=== PATIENT | male | born 1950 | race Caucasian/White ===

== ENCOUNTER → 2020-06-05 | Outpatient (CLI) | payer OTHER ==
[~2020-06-05] MED LIST: LOSA100T14 PO
[2020-06-05 10:51] LABS: BASOPHILS # (AUTO) 0.04 x10^3/uL (0-0.1); BASOPHILS % (AUTO) 1 % (0-1); EOSINOPHILS # (AUTO) 0.16 x10^3/uL (0-0.4); EOSINOPHILS % (AUTO) 2 % (1-7); LYMPHOCYTES # (AUTO) 0.58 x10^3/uL (1-3.4); LYMPHOCYTES % (AUTO) 8 % (22-44); MD NO; MEAN CORPUSCULAR HEMOGLOBIN 33.1 pg (27.5-34.5); MEAN CORPUSCULAR HGB CONC 33.4 g/dL (33.2-36.2); MEAN CORPUSCULAR VOLUME 99.3 fL (81-97); MEAN PLATELET VOLUME 7.8 fL (7.4-10.4); MONOCYTES # (AUTO) 0.83 x10^3/uL (0.2-0.8); MONOCYTES % (AUTO) 12 % (2-9); NEUTROPHILS % (AUTO) 77 % (42-75); PLATELET COUNT 327 x10^3/uL (130-400); RED BLOOD COUNT 4.35 x10^6/uL (4.38-5.82); RED CELL DISTRIBUTION WIDTH 16.4 % (9.4-14.8)
[2020-06-05 11:02] LABS: INTERNATIONAL NORMALIZED RATIO 0.97 (0.93-1.1)
[2020-06-05 11:03] LABS: ALBUMIN 3.2 g/dL (3.4-5.0); ANION GAP 8 mmol/L (5-15); CHLORIDE 100 mmol/L (98-107)
[2020-06-05 11:07] LABS: ALANINE AMINOTRANSFERASE 22 U/L (12-78); ALKALINE PHOSPHATASE 53 U/L (45-117); BILIRUBIN,TOTAL 0.6 mg/dL (0.2-1.0); CREATININE 0.74 mg/dL (0.7-1.3); TOTAL PROTEIN 7.1 g/dL (6.4-8.2)
== END | disposition home or self-care (01) ==
LOC: STAR 09:28
PROVIDERS: ATTEND Orthopaedic Surgery
DX: Z01.818 Encounter for other preprocedural examination (principal); Z11.59 Encounter for screening for other viral diseases; I45.10 Unspecified right bundle-branch block; I44.4 Left anterior fascicular block; M17.11 Unilateral primary osteoarthritis, right knee; M25.561 Pain in right knee
CPT/HCPCS: 36415; 80053; 83036; 85025; 85610; 85730; 87081; 87635; 93005

== ENCOUNTER 2020-06-10 07:00 | Inpatient (IN) | payer OTHER ==
[~2020-06-10] VITALS: Ht 175.3 cm; Wt 113.4 kg
[~2020-06-10 07:00] MED LIST changes: +EPINEPHRINE 1 MG/ML, 1ML ONE; +KETOROLAC 60 MG/2 ML ONE; +ROPIvacaine/PF 0.5%, 20 ML ONE; +ROPIvacaine/PF 0.5%, 30 ML ONE; +SODIUM CHLORIDE 0.9% 0 ML ONE; +TRANEXAMIC ACID 100 MG/ML, 10ML ONE; +VANCOMYCIN 1,000 MG ONE
[2020-06-10] MEDS ORDERED: NS + 20MEQ KCL 1,000 ML IV SCH (09:35)
[2020-06-10] MEDS ORDERED: LACTATED RINGERS 1,000 ML IV SCH (09:48)
[2020-06-10] MEDS ORDERED: TOFA5TAB PO (09:51)
[2020-06-10 09:55] VITALS: BP 144/84
[2020-06-10] MEDS ORDERED: GABAPENTIN 300 MG CAPSULE ONE (09:58)
[2020-06-10] MEDS ORDERED: CHLORHEXIDINE 15 ML UDC ONE (09:59)
[2020-06-10] MEDS ORDERED: SENNA/DOCUSATE TABLET PO PRN (10:00)
[2020-06-10] MEDS ORDERED: CHLORHEXIDINE 15 ML UDC MM ONE (10:00)
[2020-06-10] MEDS ORDERED: BISACODYL 10 MG SUPP PR PRN (10:00)
[2020-06-10] MEDS ORDERED: ONDANSETRON 4 MG TABLET PO PRN (10:00)
[2020-06-10] MEDS ORDERED: DIPHENHYDRAMINE 25 MG CAPSULE PO PRN (10:00)
[2020-06-10] MEDS ORDERED: CEFAZOLIN PMX 2GM/50ML 50 ML IVPB SCH (10:00)
[2020-06-10] MEDS ORDERED: OXYcodone IR 5MG TABLET PO PRN (10:00)
[2020-06-10] MEDS ORDERED: ACETAMINOPHEN 650 MG/20.3 ML UDC PO PRN (10:00)
[2020-06-10] MEDS ORDERED: MAGNESIUM HYDROXIDE 8%, 30ML UDC PO PRN (10:00)
[2020-06-10] MEDS ORDERED: ONDANSETRON 2MG/ML, 2ML IV PRN (10:00)
[2020-06-10] MEDS ORDERED: HYDROcodone/APAP 5/325 TABLET PO PRN (10:00)
[2020-06-10] MEDS ORDERED: ZOLPIDEM 5MG TABLET PO PRN (10:00)
[2020-06-10] MEDS ORDERED: HYDROmorphone 1 MG/ML, 1ML INJ IV PRN (10:00)
[2020-06-10] MEDS ORDERED: ACETAMINOPHEN 500 MG TABLET PO ONE (10:00)
[2020-06-10] MEDS ORDERED: MIDAZOLAM 1 MG/ML, 2ML ONE (10:21)
[2020-06-10] MEDS ORDERED: FENTANYL PF 250 MCG/5ML ONE (10:21)
[2020-06-10] MEDS ORDERED: GABAPENTIN 300 MG CAPSULE PO ONE (11:00)
[2020-06-10] MEDS ORDERED: ASPIRIN 81 MG TABLET EC PO SCH (18:00)
[2020-06-10] MEDS ORDERED: DOCUSATE 100 MG CAPSULE PO SCH (21:00)
[2020-06-11] MEDS ORDERED: DEXAMETHASONE 4 MG/ML, 1ML IVPush SCH (06:00)
[2020-06-11] MEDS ORDERED: LOSARTAN 100 MG TAB PO SCH (09:00)
== END 2020-06-10 11:40 | disposition home or self-care (01) | DRG 554 ==
LOC: ORIP 08:47
PROVIDERS: ADMIT Orthopaedic Surgery; ATTEND Orthopaedic Surgery
DX: M17.0 Bilateral primary osteoarthritis of knee (principal); I48.92 Unspecified atrial flutter; Z96.651 Presence of right artificial knee joint; M06.9 Rheumatoid arthritis, unspecified
CPT/HCPCS: J0171; J1885; J2250; J2795; J3010; J3370; J7120